=== PATIENT | male | born 1990 | race American Indian/Alaskan Native ===

== ENCOUNTER 2022-01-01 08:59 | Outpatient (CLI) | payer OTHER ==
--- NOTE | 2022-01-01 09:50 | XRay Report ---
LUMBOSACRAL SPINE 3 VIEWS INDICATION / CLINICAL INFORMATION: BACK PAIN. COMPARISON: None available. FINDINGS: BONES / JOINT(S): There is mild nonspecific straightening of the normal thoracolumbar curvature. The vertebral body heights and disc spaces are well-maintained. The pedicles are intact and the SI joints are normal. There is no evidence of fracture, subluxation or destructive lesion. SOFT TISSUES: No significant abnormality. ADDITIONAL FINDINGS: There is a moderate amount of stool in the right and transverse colon. Signer Name: Hill Baig MD Signed: 01/01/2022 9:46 AM Workstation Name: [id number]
== END 2022-01-01 09:00 | disposition home or self-care (01) ==
LOC: XRAY 08:59
PROVIDERS: ATTEND Internal Medicine
DX: Z02.71 Encounter for disability determination (principal); M54.50 Low back pain, unspecified; K56.41 Fecal impaction
CPT/HCPCS: 72100